=== PATIENT | female | born 1955 | race Two or more races ===

== ENCOUNTER → 2018-07-01 | Outpatient (CLI) | payer MEDICAID ==
[~2018-07-01] MED LIST: IOPAMIDOL (ISOVUE-300) 100 ML BTL ONE
== END ==
LOC: FIMAGING 11:14
PROVIDERS: ATTEND Internal Medicine Infectious Disease
DX: R91.8 Other nonspecific abnormal finding of lung field (principal)
CPT/HCPCS: 82565-PO; Q9967